=== PATIENT | male | born 1985 | race Two or more races ===

== ENCOUNTER 2016-10-02 11:07 | Emergency (ER) | payer OTHER ==
[2016-10-02 11:12] VITALS: BP 153/92; PULSE 77; TEMP 98; BMI 24.3
--- NOTE | 2016-10-02 11:49 | PDOC ---
History of Present Illness - General Chief Complaint: Eye Problem Stated Complaint: EYE PROBLEM Time Seen by Provider: 10/02/16 11:13 History Source: Patient - History of Present Illness Timing/Duration: other Past History - Past Medical History Allergies/Adverse Reactions: Allergies Allergy/AdvReac Type Severity Reaction Status Date / Time No Known Allergies Allergy Verified 10/02/16 11:12 Home Medications: Ambulatory Orders Hypromellose 0.5% Opth Soln [Artificial Tears] 1 drop OD ASDIR #1 dropsbtl 10/02 Anemia: No Cardiac Disorders: No CHF: No - Psycho/Social/Smoking Cessation Hx Suicidal Ideation: No Smoking History: Never smoked Have you smoked in the past 12 months: No Information on smoking cessation initiated: No Hx Alcohol Use: Yes Drug/Substance Use Hx: No Substance Use Type: Alcohol Hx Substance Use Treatment: No Review of Systems - Review of Systems Constitutional: No: Chills, Fever HEENTM: Yes: Eye Pain. No: Symptoms Reported, Blurred Vision, Tearing, Double Vision *Physical Exam - Vital Signs Last Vital Signs Temp Pulse Resp BP Pulse Ox 98 F 77 18 153/92 98 10/02/16 11:10 10/02/16 11:10 10/02/16 11:10 10/02/16 11:10 10/02/16 11:10 - Physical Exam General Appearance: Yes: Appropriately Dressed. No: Apparent Distress HEENT: positive: Normal Voice, Other (triangular shaped, thick fibrous, erythematous tissue starting to medial eye and extending laterally onto edge of cornea to R eye, similar findings without erythema to L eye, no fb on lid eversion, VA 20/20 OD, OS and OU) Neck: positive: Supple Respiratory/Chest: negative: Respiratory Distress Integumentary: positive: Dry, Warm Neurologic: positive: Fully Oriented, Alert, Normal Mood/Affect Medical Decision Making - Medical Decision Making 10/02/16 11:51 30-year-old male, denies any past medical history, works in construction, here with redness and irritation to right eye 5 days. No discharge, foreign body sensation, tearing, photophobia, or visual changes. Denies any trauma. No sick contacts. Does not wear contact lens. On exam, patient has triangular shaped, thick, conjunctival tissue that starts medially and extends laterally onto edge of the cornea to b/l eye consistent with pterygium b/l. However on the right, tissue is mildly erythematous and appears actively inflamed. Visual acuity intact. Will dc with artificial tears and optho follow-up *DC/Admit/Observation/Transfer Diagnosis at time of Disposition: Pterygium Qualifiers: Laterality: right Qualified Code(s): H11.001 - Unspecified pterygium of right eye - Discharge Dispostion Disposition: HOME Condition at time of disposition: Good - Prescriptions Prescriptions: Hypromellose 0.5% Opth Soln [Artificial Tears] 1 drop OD ASDIR #1 dropsbtl - Referrals Referrals: Dominick Black MD [Staff Physician] - - Patient Instructions Printed Discharge Instructions: Pterygium Additional Instructions: Use drops as directed and make an appointment with the eye doctor in 1-2 weeks Print Language: BRUNEIAN
--- NOTE | 2016-10-02 12:08 | PDOC ---
*Physical Exam - Vital Signs Last Vital Signs Temp Pulse Resp BP Pulse Ox 98 F 77 18 153/92 98 10/02/16 11:10 10/02/16 11:10 10/02/16 11:10 10/02/16 11:10 10/02/16 11:10 *DC/Admit/Observation/Transfer Diagnosis at time of Disposition: Pterygium Qualifiers: Laterality: right Qualified Code(s): H11.001 - Unspecified pterygium of right eye - Discharge Dispostion Disposition: HOME Condition at time of disposition: Good - Prescriptions Prescriptions: Hypromellose 0.5% Opth Soln [Artificial Tears] 1 drop OD ASDIR #1 dropsbtl - Referrals Referrals: Dominick Black MD [Staff Physician] - - Patient Instructions Printed Discharge Instructions: Pterygium Additional Instructions: Use drops as directed and make an appointment with the eye doctor in 1-2 weeks Print Language: KENYAN - Post Discharge Activity
== END 2016-10-02 11:54 | disposition home or self-care (01) ==
LOC: JERFT 11:07
DX: H11.001 Unspecified pterygium of right eye (principal)
CPT/HCPCS: 99281-25

== ENCOUNTER 2017-09-23 09:58 | Emergency (ER) | payer SELFPAY ==
[2017-09-23 10:45] VITALS: BP 124/78; PULSE 76; TEMP 98.6; BMI 25.1
--- NOTE | 2017-09-23 11:53 | PDOC ---
Suture Removal/Wound Check HPI - History of Present Illness Chief Complaint: Suture/Staple Removal (other) Stated Complaint: SUTURE REMOVAL Time Seen by Provider: 09/23/17 11:30 History Source: Yes: Patient Exam Limitations: Yes: No [facility]itations [facility] Previous ED Treatment Type of procedure performed on last visit: Yes: Laceration Repair Past History - Travel Traveled outside of the country in the last 30 days: No Close contact w/someone who was outside of country & ill: No - Past Medical History Allergies/Adverse Reactions: Allergies Allergy/AdvReac Type Severity Reaction Status Date / Time No Known Allergies Allergy Verified 10/02/16 11:12 Home Medications: Ambulatory Orders NK [No Known Home Medication] 09/23/17 Anemia: No Cardiac Disorders: No CHF: No - Suicide/Smoking/Psychosocial Hx Smoking History: Never smoked Have you smoked in the past 12 months: No Hx Alcohol Use: Yes Drug/Substance Use Hx: No Substance Use Type: Alcohol Hx Substance Use Treatment: No Suture Removal/Wound Check PE - Physical Exam Laceration/Wound Check Symptoms: reports: None Current Severity Level: None Maximum Severity Level: None Pain Localization: None *Review of Systems - Review of Systems Able to Perform ROS?: Yes Constitutional: Yes: Symptoms Reported HEENTM: Yes: Symptoms Reported Musculoskeletal: No: Symptoms Reported Integumentary: No: Symptoms Reported All Other Systems: Reviewed and Negative *DC/Admit/Observation/Transfer Diagnosis at time of Disposition: Visit for wound check - Discharge Dispostion Disposition: HOME Condition at time of disposition: Stable Decision to Admit order: No - Referrals - Patient Instructions Additional Instructions: Try to avoid strenuous activity or exercise until sutures removed, Reapply bacitracin ointment for the next day or 2 and then allowed to dry before suturing removal will need an additional 5-7 days for healing Return to ER or private physicians for suture removal in 5-7 days - Post Discharge Activity Forms/Work/School Notes: Back to Work
== END 2017-09-23 11:55 | disposition home or self-care (01) ==
LOC: JERFT 09:58
DX: Z48.01 Encounter for change or removal of surgical wound dressing (principal)
CPT/HCPCS: 99281-25

== ENCOUNTER 2017-09-30 10:25 | Emergency (ER) | payer OTHER ==
[2017-09-30 10:32] VITALS: BP 142/79; PULSE 80; TEMP 98; BMI 25.2
--- NOTE | 2017-09-30 11:18 | PDOC ---
Suture Removal/Wound Check HPI - History of Present Illness Chief Complaint: Suture/Staple Removal(Here) Stated Complaint: SUTURE REMOVAL Time Seen by Provider: 09/30/17 11:09 History Source: Yes: Patient Exam Limitations: Yes: No Limitations Treated at: Other ED Past History - Past Medical History Allergies/Adverse Reactions: Allergies Allergy/AdvReac Type Severity Reaction Status Date / Time No Known Allergies Allergy Verified 09/30/17 10:30 Home Medications: Ambulatory Orders NK [No Known Home Medication] 09/23/17 Anemia: No Cardiac Disorders: No COPD: No CHF: No - Immunization History Immunization Up to Date: Yes - Suicide/Smoking/Psychosocial Hx Smoking History: Never smoked Have you smoked in the past 12 months: No Hx Alcohol Use: Yes Drug/Substance Use Hx: No Substance Use Type: Alcohol Hx Substance Use Treatment: No *Physical Exam - Vital Signs Last Vital Signs Temp Pulse Resp BP Pulse Ox 98.0 F 80 18 142/79 98 09/30/17 10:30 09/30/17 10:30 09/30/17 10:30 09/30/17 10:30 09/30/17 10:30 Medical Decision Making - Medical Decision Making A/P: 31 y/o male here for suture removal. He states he had sutures placed in left forearm he thinks 3 weeks ago at another ED. At that time he did have a tetanus shot. He denies fever. He states he had 10 stitches placed. The wound is on the dorsal surface of the distal left forearm. It appears well healed and the margins remain intact with applied pressure. 10 sutures removed without difficulty. Patient instructed to keep area clean. The patient verbalizes understanding of all instructions, has no further questions and is awaiting discharge. *DC/Admit/Observation/Transfer Diagnosis at time of Disposition: Visit for suture removal - Discharge Dispostion Disposition: HOME Condition at time of disposition: Good - Referrals - Patient Instructions Printed Discharge Instructions: DI for Suture Removal - Post Discharge Activity
== END 2017-09-30 11:22 | disposition home or self-care (01) ==
LOC: JERFT 10:25
DX: Z48.02 Encounter for removal of sutures (principal)
CPT/HCPCS: 99281-25

== ENCOUNTER 2020-02-21 09:08 | Emergency (ER) | payer OTHER ==
[2020-02-21 09:14] VITALS: BMI 28.7
[2020-02-21] MEDS ORDERED: ACETAMINOPHEN 325 MG TABLET (FP) PO ONE (10:10)
--- NOTE | 2020-02-21 10:13 | PDOC ---
History of Present Illness - General Chief Complaint: Pain Stated Complaint: LFT SIDE CHEST PAIN (1 WK) Time Seen by Provider: 02/21/20 10:01 History Source: Patient Exam Limitations: No Limitations - History of Present Illness Initial Comments: 02/21/20 10:13 34y M no pmhx presents with complaint of R sided chest pain. The patient was recently doing some excercising and noticed about a week ago that he had some brielf R sided chest discomfort in the evening snad sometimes when taking a deep breath. The symptoms Are mild, intermittent, he waited a couple days for the pain to improve however it did not improve so he came for evaluation. The patient denies any associated shortness of breath, dyspnea on exertion, hemoptysis, worsening of the pain with movement, any fever, chills, cough, body aches, Leg swelling. The patient denies any other history of smoking, pulmonary embolisms/DVT. Past History - Medical History Allergies/Adverse Reactions: Allergies Allergy/AdvReac Type Severity Reaction Status Date / Time No Known Allergies Allergy Verified 02/21/20 09:11 Home Medications: Ambulatory Orders NK [No Known Home Medication] 09/23/17 Anemia: No Cardiac Disorders: No COPD: No CHF: No - Immunization History Immunization Up to Date: Yes - Psycho-Social/Smoking History Smoking History: Never smoked Have you smoked in the past 12 months: No - Substance Abuse Hx (Audit-C & DAST Scrn) How often the patient has a drink containing alcohol: Never Score: In Men: 4 or > Positive; In Women: 3 or > Positive: 0 Screen Result (Pos requires Nsg. Audit-10AR): Negative In the last yr the pt used illegal drug/Rx for NonMed reason: No Score: Yes response is considered Positive: 0 Screen Result (Positive result requires Nsg. DAST-10): Negative Cardiac Specific PMH - Complaint Specific PMHX Angina: No Cardiac Arrhythmia: No Peripheral Vascular Disease: No Review of Systems - Review of Systems Able to Perform ROS?: Yes Comments:: 02/21/20 10:18 Constitutional - no reported Fever, Chills, HEENT: no reported vision changes, sore throat Respiratory: no reported cough, sob, hemoptysis Cardiac: + chest pain, no reported palpitations, light headedness, leg swelling Abd/GI: no reported abd pain, nausea, vomiting, blood per rectum, melena, diarrhea : no reported dysuria, frequency, discharge Musculskelatal - no reported back pain, joint swelling skin - no reported bruising, erythema, rash neurological: no reported headache, numbness, focal weakness, tingling, ataxia, hematologic: no reported easy bruising, easy bleeding *Physical Exam - Vital Signs Last Vital Signs Temp Pulse Resp BP Pulse Ox 98.6 F 88 18 139/86 100 02/21/20 09:11 02/21/20 09:11 02/21/20 09:11 02/21/20 09:11 02/21/20 09:11 - Physical Exam 02/21/20 10:18 GENERAL: The patient is awake, alert, and fully oriented, Nontoxic - in no acute distress. HEAD: Normocephalic, atraumatic. EYES: extraocular movements intact, sclera anicteric, conjunctiva clear. ENT: Normal voice, Moist mucous membranes. NECK: Normal range of motion, supple LUNGS: Breath sounds equal, clear to auscultation bilaterally. No wheezes, no rhonchi, no rales. HEART: Regular rate and rhythm, normal S1 and S2 without murmur, rub or gallop. ABDOMEN: Soft, nontender, No guarding, no rebound. No CVA tenderness EXTREMITIES: Normal range of motion, no edema. Negative Homans, no calf tenderness NEUROLOGICAL: No facial assymetry, Normal speech, PSYCH: Normal mood, normal affect. SKIN: Warm, Dry, normal turgor, Heart Score/ECG Review - ECG Impressions Comment:: 02/21/20 10:23 Twelve-lead EKG was performed and reviewed by me. There is normal sinus rhythm with a normal rate. rate of 80 The axis is normal. The intervals are normal. There is normal R wave progression There are no ST or T wave abnormalities. Impression: Normal twelve-lead EKG ED Treatment Course - LABORATORY CBC & Chemistry Diagram: 02/21/20 10:47 02/21/20 10:09 - ADDITIONAL ORDERS Additional order review: Laboratory Results 02/21/20 10:09 Sodium 139 Potassium 4.4 Chloride 105 Carbon Dioxide 29 Anion Gap 6 L BUN 13.2 Creatinine 1.0 Est GFR (CKD-EPI)AfAm 113.31 Est GFR (CKD-EPI)NonAf 97.76 Random Glucose 85 Calcium 9.3 Total Bilirubin 0.5 AST 37 ALT 87 H Alkaline Phosphatase 59 Creatine Kinase 245 Creatine Kinase Index No Result Required. CK-MB (CK-2) < 1.0 Troponin I < 0.02 Total Protein 8.2 Albumin 4.3 02/21/20 10:47 RBC 5.43 MCV 86.5 MCHC 33.0 RDW 13.7 MPV 9.1 Neutrophils % 51.5 Lymphocytes % 38.0 Monocytes % 9.3 Eosinophils % 0.9 Basophils % 0.3 - RADIOLOGY Radiology Studies Ordered: Category Date Time Status CHEST PA & LAT [RAD] Stat Radiology 02/21/20 10:09 Completed - Medications Given in the ED: ED Medications Discontinued Medications Generic Name Dose Route Start Last Admin Trade Name Virgil PRN Reason Stop Dose Admin Acetaminophen 650 mg 02/21/20 10:10 02/21/20 11:36 Tylenol - PO 02/21/20 10:11 650 mg ONCE ONE Administration Medical Decision Making - Medical Decision Making 02/21/20 10:18 Differential for the patient's symptoms includes possible pneumothorax, pleurisy, Musculoskeletal pain, Consider but doubt ACS. PERC score negative for pulmonary embolism. Discharge - Discharge Information Problems reviewed: Yes Clinical Impression/Diagnosis: Pleuritic chest pain Condition: Improved Disposition: HOME - Admission No - Follow up/Referral Ref[facility]: [facility] [place] [Provider Group] - Patient Discharge Instructions Patient Printed Discharge Instructions: DI for Chest Pain Additional Instructions: Return to the emergency department immediately with ANY new, persistent or worsening symptoms Including recurrent chest pain, difficulty breathing or any other concerns. You MUST call and follow up with your doctor in 3-4 days for further evaluation of your symptoms. Results were discussed with you. Please make sure your doctor reviews the results of your emergency evaluation. Your Emergency Department vi sit is not complete without a follow up with your doctor. Print Language: HONDURAN - Post Discharge Activity
--- OUTSIDE RECORDS SUMMARY | 2020-02-21 10:34 | XMS ---
:1985 Author Organization [facility] Support Name Relationship Address Phone UE Unavailable Unavailable Unavailable LAVINIA SINGH PARTNER [address] [place] [address] Re-disclosure Warning The records that you are about to access may contain information from federally- assisted alcohol or drug abuse programs. If such information is present, then the following federally mandated warning applies: This information has been disclosed to you from records protected by federal confidentiality rules (42 CFR part 2). The federal rules prohibit you from making any further disclosure of this information unless further disclosure is expressly permitted by the written consent of the person to whom it pertains or as otherwise permitted by 42 CFR part 2. A general authorization for the release of medical or other information is NOT sufficient for this purpose. The Federal rules restrict any use of the information to criminally investigate or prosecute any alcohol or drug abuse patient.The records that you are about to access may contain highly sensitive health information, the redisclosure of which is protected by Article 27-F of the [facility] Public Health law. If you continue you may haveaccess to information: Regarding HIV / AIDS; Provided by facilities licensed or operated by the [facility] Office of Mental Health; or Provided by the [facility] Office for People With Developmental Disabilities. If such information is present, then the following [facility] mandated warning applies: This information has been disclosed to you from confidential records which are protected by state law. State law prohibits you from making any further disclosure of this information without the specific written consent of the person to whom it pertains, or as otherwise permitted by law. Any unauthorized further disclosure in violation of state law may result in a fine or senior care sentence or both. A general authorization for the release of medical or other information is NOT sufficient authorization for further disclosure. Insurance Providers Payer name Policy type Policy ID Covered Covered democrat's Policy P marguerite / Coverage democrat ID relationship to [place] Inf ormation type [place] [id number] [facility] NON CAP
[2020-02-21] MEDS ORDERED: ACETAMINOPHEN 325 MG TABLET (FP) ONE (10:40)
[2020-02-21 11:30] LABS: BASO % 0.3 % (0-2.0); EOS % 0.9 % (0-4.5); HEMATOCRIT 46.9 % (35.4-49); HEMOGLOBIN 15.5 GM/dL (11.7-16.9); MCH 28.5 pg (25.7-33.7); MEAN CELL VOLUME 86.5 fl (80-96); MEAN PLT VOLUME 9.1 fl (7.5-11.1); MONO % 9.3 % (3.8-10.2); NEUT % 51.5 % (42.8-82.8); PLATELET COUNT 232 K/MM3 (134-434); RBC 5.43 M/mm3 (4.00-5.60); RDW 13.7 % (11.9-15.9); WHITE BLOOD COUNT 5.2 K/mm3 (4.0-10.0)
[2020-02-21 11:56] LABS: ALBUMIN 4.3 g/dl (3.4-5.0); ALK PHOS 59 U/L (45-117); ANION GAP 6 MMOL/L (8-16); BILIRUBIN,TOTAL 0.5 mg/dL (0.2-1); BLOOD UREA NITROGEN 13.2 mg/dL (7-18); CALCIUM 9.3 mg/dL (8.5-10.1); CHLORIDE 105 mmol/L (98-107); CO2 29 mmol/L (21-32); GLUCOSE,RANDOM 85 mg/dL (74-106); POTASSIUM 4.4 mmol/L (3.5-5.1); SGOT/AST 37 U/L (15-37); SGPT/ALT 87 U/L (13-61); SODIUM 139 mmol/L (136-145); TOT PROT 8.2 g/dl (6.4-8.2)
[2020-02-21 13:39] VITALS: BP 132/75; PULSE 82; TEMP 98.4
--- NOTE | 2020-02-22 13:53 | EKG ---
Test Reason : Blood Pressure : / mmHG Vent. Rate : 080 BPM Atrial Rate : 080 BPM P-R Int : 168 ms QRS Dur : 086 ms QT Int : 344 ms P-R-T Axes : 063 040 033 degrees QTc Int : 396 ms NORMAL SINUS RHYTHM NORMAL ECG WHEN COMPARED WITH ECG OF 27-NOV-2013 23:14, NO SIGNIFICANT CHANGE WAS FOUND Confirmed by ROSSI OTT MD ([id number]) on 02/22/2020 1:53:07 PM Referred By: Confirmed By:ROSSI OTT MD
== END 2020-02-21 13:38 | disposition home or self-care (01) ==
LOC: JER 09:08
DX: R07.81 Pleurodynia (principal)
CPT/HCPCS: 36415; 71046-TC-FY; 80053; 82550; 82553; 84484; 85025; 93005; 93010; 99285-25

== ENCOUNTER 2020-04-22 10:06 | Emergency (ER) | payer OTHER ==
[2020-04-22 10:20] VITALS: BP 146/82; PULSE 87; TEMP 97.9; BMI 26.9
[2020-04-22 11:44] LABS: BASO % 0.7 % (0-2.0); EOS % 2.1 % (0-4.5); HEMATOCRIT 44.5 % (35.4-49); HEMOGLOBIN 14.6 GM/dL (11.7-16.9); LYMPH % 44.9 % (8-40); MCH 29.1 pg (25.7-33.7); MCHC 32.9 g/dl (32.0-35.9); MEAN CELL VOLUME 88.3 fl (80-96); MONO % 10.8 % (3.8-10.2); NEUT % 41.5 % (42.8-82.8); PLATELET COUNT 217 K/MM3 (134-434); RBC 5.03 M/mm3 (4.00-5.60); RDW 14.1 % (11.9-15.9); WHITE BLOOD COUNT 4.3 K/mm3 (4.0-10.0)
[2020-04-22 11:56] LABS: INR 0.99 (0.83-1.09); PROTHROMBIN TIME (PATIENT) 12.2 SEC (9.7-13.0)
[2020-04-22 11:57] LABS: POTASSIUM 4.2 mmol/L (3.5-5.1)
[2020-04-22 11:58] LABS: ACTIVATED PTT 24.8 SECONDS (25.2-36.5)
[2020-04-22 12:02] LABS: ALBUMIN 4.2 g/dl (3.4-5.0); BLOOD UREA NITROGEN 13.8 mg/dL (7-18); CALCIUM 9.3 mg/dL (8.5-10.1)
[2020-04-22 12:05] LABS: CREATININE 1.1 mg/dL (0.55-1.3)
[2020-04-22 12:07] LABS: BILIRUBIN,TOTAL 0.4 mg/dL (0.2-1); TOT PROT 8.1 g/dl (6.4-8.2)
== END 2020-04-22 12:42 | disposition home or self-care (01) ==
LOC: JER 10:06
DX: K62.5 Hemorrhage of anus and rectum (principal)
CPT/HCPCS: 36415; 80053; 82272; 85025; 85610; 85730; 86850; 86900; 86901; 93005; 93010; 99283-25

== ENCOUNTER 2020-07-31 05:35 | Day surgery (SDC) | payer OTHER ==
[2020-07-29 08:40] VITALS: BMI 27.1
[2020-07-31 12:59] VITALS: TEMP 97.7
[2020-07-31 14:00] VITALS: BP 118/74; PULSE 68
== END 2020-07-31 13:45 | disposition home or self-care (01) ==
LOC: JASU-ENDO 05:35
PROVIDERS: ATTEND Internal Medicine Gastroenterology
PROC: 0DBP8ZX Excision of Rectum, Via Natural or Artificial Opening Endoscopic, Diagnostic (ICD-10-PCS; 2020-07-31)
PROC: 0DBN8ZX Excision of Sigmoid Colon, Via Natural or Artificial Opening Endoscopic, Diagnostic (ICD-10-PCS; 2020-07-31)
PROC: 0DBN8ZX Excision of Sigmoid Colon, Via Natural or Artificial Opening Endoscopic, Diagnostic (ICD-10-PCS; principal; 2020-07-31 12:30)
DX: K62.5 Hemorrhage of anus and rectum (principal); K62.1 Rectal polyp; D12.4 Benign neoplasm of descending colon; D12.5 Benign neoplasm of sigmoid colon; K64.8 Other hemorrhoids
CPT/HCPCS: 88305-TC

== ENCOUNTER 2020-10-28 04:59 | Day surgery (SDC) | payer OTHER ==
[2020-10-27 15:29] VITALS: BMI 27.3
[2020-10-28 09:49] VITALS: TEMP 97.5
[2020-10-28 10:15] VITALS: PULSE 65
[2020-10-28 10:40] VITALS: BP 116/75
== END 2020-10-28 10:00 | disposition home or self-care (01) ==
LOC: JASU-ENDO 04:59
PROVIDERS: ATTEND Internal Medicine Gastroenterology
PROC: 0DBL8ZX Excision of Transverse Colon, Via Natural or Artificial Opening Endoscopic, Diagnostic (ICD-10-PCS; 2020-10-28)
PROC: 0DBP8ZX Excision of Rectum, Via Natural or Artificial Opening Endoscopic, Diagnostic (ICD-10-PCS; 2020-10-28)
PROC: 0DBN8ZX Excision of Sigmoid Colon, Via Natural or Artificial Opening Endoscopic, Diagnostic (ICD-10-PCS; 2020-10-28)
PROC: 3E0H8GC Introduction of Other Therapeutic Substance into Lower GI, Via Natural or Artificial Opening Endoscopic (ICD-10-PCS; 2020-10-28)
PROC: 0DBF8ZX Excision of Right Large Intestine, Via Natural or Artificial Opening Endoscopic, Diagnostic (ICD-10-PCS; principal; 2020-10-28 09:00)
DX: Z86.010 Personal history of colon polyps (principal); K62.1 Rectal polyp; D12.5 Benign neoplasm of sigmoid colon; D12.3 Benign neoplasm of transverse colon; K64.8 Other hemorrhoids
CPT/HCPCS: 88305-TC

== ENCOUNTER 2021-02-12 10:44 | Emergency (ER) | payer OTHER ==
[2021-02-12 10:59] VITALS: BP 123/91; PULSE 20; TEMP 98.7; BMI 27.9
== END 2021-02-12 12:42 | disposition home or self-care (01) ==
LOC: JERFT 10:44
DX: R42 Dizziness and giddiness (principal)
CPT/HCPCS: 99283-25

== ENCOUNTER 2023-12-30 08:41 | Emergency (ER) | payer OTHER ==
[2023-12-30 08:51] VITALS: TEMP 98; BMI 27.2
[2023-12-30 10:11] LABS: BASO % 0.5 % (0-2.0); EOS % 0.7 % (0-4.5); HEMOGLOBIN 14.9 GM/dL (11.7-16.9); LYMPH % 26.2 % (8-40); MCH 29.3 pg (25.7-33.7); MEAN CELL VOLUME 88.7 fl (80-96); MEAN PLT VOLUME 8.9 fl (7.5-11.1); MONO % 9.5 % (3.8-10.2); NEUT % 63.1 % (42.8-82.8); PLATELET COUNT 196 10^3/uL (134-434); RBC 5.07 M/mm3 (4.00-5.60); WHITE BLOOD COUNT 5.6 K/mm3 (4.0-10.0)
[2023-12-30 10:29] LABS: POTASSIUM 4.3 mmol/L (3.5-5.1)
[2023-12-30 10:31] LABS: ALBUMIN 4.1 g/dl (3.4-5.0); BLOOD UREA NITROGEN 17.7 mg/dL (7-18); CALCIUM 9.6 mg/dL (8.5-10.1)
[2023-12-30 10:35] LABS: CREATININE 1.1 mg/dL (0.55-1.3)
[2023-12-30 10:36] LABS: BILIRUBIN,TOTAL 0.4 mg/dL (0.2-1); TOT PROT 8.1 g/dl (6.4-8.2)
[2023-12-30] MEDS ORDERED: ACETAMINOPHEN INJECTION 100 ML ONE (12:32)
[2023-12-30] MEDS: ACETAMINOPHEN 1000 MG/100 ML BAG IVPB ONE (12:37)
[2023-12-30] MEDS ORDERED: KETOROLAC TROMETHAMINE 15 MG/ML VIAL ONE ×2 (14:18)
[2023-12-30] MEDS: KETOROLAC TROMETHAMINE 15 MG/ML VIAL IVPUSH ONE (14:23)
[2023-12-30 15:25] VITALS: BP 130/81; PULSE 81; RESP 15
== END 2023-12-30 15:25 | disposition home or self-care (01) ==
LOC: JER 08:41
PROC: 3E033NZ Introduction of Analgesics, Hypnotics, Sedatives into Peripheral Vein, Percutaneous Approach (ICD-10-PCS; principal; 2023-12-30)
PROC: 3E0133Z Introduction of Anti-inflammatory into Subcutaneous Tissue, Percutaneous Approach (ICD-10-PCS; 2023-12-30)
DX: R07.89 Other chest pain (principal)
CPT/HCPCS: 36415; 71045-TC-FY; 80053; 84484; 85025; 93005; 93010; 99284-25; J0131

== ENCOUNTER 2024-12-26 21:27 | Emergency (ER) | payer OTHER ==
[2024-12-26 21:33] VITALS: BP 148/91; PULSE 88; RESP 20; TEMP 98.5; BMI 25.5
== END 2024-12-26 23:08 | disposition home or self-care (01) ==
LOC: JER 21:27
DX: I10 Essential (primary) hypertension (principal)
CPT/HCPCS: 99282-25